=== PATIENT | female | born 1940 | race Two or more races ===

== ENCOUNTER → 2017-08-27 | Outpatient (CLI) | payer OTHER ==
[~2017-08-27] MED LIST: ACIDOPHILUS1 EAC1 PO; NEURONTIN800 MG; SYNTHROID88 MCG PO; ZANTAC150 MG PO
== END | disposition home or self-care (01) ==
LOC: NUCLEAR 09:00
DX: J44.9 Chronic obstructive pulmonary disease, unspecified (principal); R07.89 Other chest pain; I25.10 Atherosclerotic heart disease of native coronary artery without angina pectoris

== ENCOUNTER 2017-10-22 10:44 | Outpatient (CLI) | payer OTHER | END 2017-10-22 10:57 | disposition home or self-care (01) | LOC: MAMO-SONO 10:44 | DX: Z12.31 Encounter for screening mammogram for malignant neoplasm of breast (principal); Z87.898 Personal history of other specified conditions; C50.919 Malignant neoplasm of unspecified site of unspecified female breast ==

== ENCOUNTER 2017-12-11 22:14 | Emergency (ER) | payer OTHER ==
[~2017-12-11] VITALS: Ht 152.4 cm; Wt 66.7 kg
== END 2017-12-11 23:10 | disposition home or self-care (01) ==
LOC: ER 22:14
DX: S61.216A Laceration without foreign body of right little finger without damage to nail, initial encounter (principal); W45.8XXA Other foreign body or object entering through skin, initial encounter; Y93.89 Activity, other specified; Y92.238 Other place in hospital as the place of occurrence of the external cause; Y99.8 Other external cause status

== ENCOUNTER 2017-12-17 08:15 | Outpatient (CLI) | payer OTHER | END 2017-12-17 08:29 | disposition home or self-care (01) | LOC: TOM 08:15 | DX: J43.2 Centrilobular emphysema (principal); Z87.891 Personal history of nicotine dependence; R06.02 Shortness of breath; C50.911 Malignant neoplasm of unspecified site of right female breast ==

== ENCOUNTER → 2018-10-24 | Outpatient (CLI) | payer OTHER | END | disposition home or self-care (01) | LOC: MAMO-SONO 10:15 | DX: N60.11 Diffuse cystic mastopathy of right breast (principal); N60.12 Diffuse cystic mastopathy of left breast ==

== ENCOUNTER 2018-12-06 09:21 | Outpatient (CLI) | payer OTHER | END 2018-12-06 09:24 | disposition home or self-care (01) | LOC: TOM 09:21 | DX: M54.5 Low back pain (principal); C50.911 Malignant neoplasm of unspecified site of right female breast; I10 Essential (primary) hypertension; C50.919 Malignant neoplasm of unspecified site of unspecified female breast; E03.8 Other specified hypothyroidism; G60.8 Other hereditary and idiopathic neuropathies; J43.8 Other emphysema; Z87.891 Personal history of nicotine dependence ==

== ENCOUNTER → 2019-03-08 | Outpatient (CLI) | payer OTHER | END | disposition home or self-care (01) | LOC: TOM 08:56 | DX: J43.2 Centrilobular emphysema (principal); Z87.891 Personal history of nicotine dependence; C50.919 Malignant neoplasm of unspecified site of unspecified female breast; R06.02 Shortness of breath ==

== ENCOUNTER 2019-07-05 08:05 | Outpatient (CLI) | payer OTHER | END 2019-07-05 08:09 | disposition home or self-care (01) | LOC: NUCLEAR 08:05 | PROVIDERS: ATTEND Internal Medicine | DX: M81.0 Age-related osteoporosis without current pathological fracture (principal); G60.8 Other hereditary and idiopathic neuropathies; M54.5 Low back pain; C50.911 Malignant neoplasm of unspecified site of right female breast; I10 Essential (primary) hypertension; E03.8 Other specified hypothyroidism; G60.3 Idiopathic progressive neuropathy; M06.4 Inflammatory polyarthropathy; A15.0 Tuberculosis of lung; B39.4 Histoplasmosis capsulati, unspecified; J43.8 Other emphysema; Z87.891 Personal history of nicotine dependence ==

== ENCOUNTER 2019-07-11 09:52 | Outpatient (CLI) | payer OTHER | END 2019-07-11 10:04 | disposition home or self-care (01) | LOC: RAD 09:52 | PROVIDERS: ATTEND Internal Medicine | DX: M54.5 Low back pain (principal); I10 Essential (primary) hypertension; C50.911 Malignant neoplasm of unspecified site of right female breast; C50.919 Malignant neoplasm of unspecified site of unspecified female breast; E03.8 Other specified hypothyroidism; G60.8 Other hereditary and idiopathic neuropathies; G60.3 Idiopathic progressive neuropathy; M06.4 Inflammatory polyarthropathy; A15.0 Tuberculosis of lung; B39.4 Histoplasmosis capsulati, unspecified; J43.8 Other emphysema; Z87.891 Personal history of nicotine dependence ==

== ENCOUNTER 2019-11-01 13:22 | Outpatient (CLI) | payer OTHER | END 2019-11-01 13:43 | disposition home or self-care (01) | LOC: MAMO-SONO 13:22 | PROVIDERS: ATTEND Surgery | DX: N60.11 Diffuse cystic mastopathy of right breast (principal); N60.12 Diffuse cystic mastopathy of left breast; C50.411 Malignant neoplasm of upper-outer quadrant of right female breast ==

== ENCOUNTER 2020-10-30 09:07 | Outpatient (CLI) | payer OTHER | END 2020-10-30 09:23 | disposition home or self-care (01) | LOC: MAMO-SONO 09:07 | PROVIDERS: ATTEND Surgery | DX: R92.1 Mammographic calcification found on diagnostic imaging of breast (principal); Z12.31 Encounter for screening mammogram for malignant neoplasm of breast; N60.11 Diffuse cystic mastopathy of right breast; N60.12 Diffuse cystic mastopathy of left breast ==

== ENCOUNTER 2024-07-23 09:50 | Emergency (ER) | payer OTHER ==
[~2024-07-23] VITALS: Ht 160 cm; Wt 58.1 kg
[2024-07-23] MEDS ORDERED: KETOROLAC TROMETHAMINE 30 MG VIAL ONE (10:11)
[2024-07-23] MEDS ORDERED: KETOROLAC TROMETHAMINE 30 MG VIAL IM ONE (10:15)
== END 2024-07-23 13:40 | disposition home or self-care (01) ==
LOC: ER 09:50
DX: G89.11 Acute pain due to trauma (principal); M25.512 Pain in left shoulder; M54.50 Low back pain, unspecified; E03.8 Other specified hypothyroidism
CPT/HCPCS: 29105; 72070; 72100; 73030; 96372; 99283; J1885